=== PATIENT | female | born 1990 | race Caucasian/White ===

== ENCOUNTER 2019-09-01 08:05 | Inpatient (IN) | payer BC ==
[2019-09-01] MEDS ORDERED: ELECTROLYTE-148 SOLN 1,000 ML IV SCH ×2 (09:15→17:15)
[2019-09-01] MEDS ORDERED: PROMETHAZINE HCL 25 MG/1 ML VIAL ONE (09:31)
[2019-09-01] MEDS ORDERED: BUTORPHANOL TARTRATE 1 MG/ML VIAL ONE ×2 (09:31)
[2019-09-01] MEDS ORDERED: BUTORPHANOL TARTRATE 2 MG/ML VIAL IVPB ONE (10:00)
[2019-09-01] MEDS ORDERED: PROMETHAZINE HCL 25 MG/1 ML VIAL IVPB ONE (10:00)
[2019-09-01 10:02] VITALS: BMI 37.8
[2019-09-01 10:07] LABS: BASO % 0.8 % (0-2.0); EOS % 0.5 % (0-4.5); HEMATOCRIT 36.2 % (32.4-45.2); HEMOGLOBIN 12.5 GM/dL (10.7-15.3); LYMPH % 15.8 % (8-40); MCH 31.9 pg (25.7-33.7); MCHC 34.5 g/dl (32.0-36.0); MEAN CELL VOLUME 92.5 fl (80-96); MEAN PLT VOLUME 10.3 fl (7.5-11.1); NEUT % 76.9 % (42.8-82.8); PLATELET COUNT 167 K/MM3 (134-434); RBC 3.91 M/mm3 (3.60-5.2); RDW 16.1 % (11.6-15.6); WHITE BLOOD COUNT 11.4 K/mm3 (4.0-10.0)
[2019-09-01 10:24] LABS: INR 0.89 (0.83-1.09); PROTHROMBIN TIME (PATIENT) 10.5 SEC (9.7-13.0)
[2019-09-01 10:27] LABS: ACTIVATED PTT 27.3 SECONDS (25.2-36.5)
[2019-09-01 10:32] LABS: BLOOD UREA NITROGEN 9.6 mg/dL (7-18); CALCIUM 8.6 mg/dL (8.5-10.1); CREATININE 0.6 mg/dL (0.55-1.3); POTASSIUM 3.7 mmol/L (3.5-5.1)
[2019-09-01] MEDS ORDERED: OXYTOCIN 20 UNITS in 0.9% NS 20 UNIT/1,000 ML INFUS.BAG IV ONE ×3 (11:44→19:25)
[2019-09-01] MEDS ORDERED: LIDOCAINE HCL 1% PRESERVATIVE FREE - 30ML VIAL ONE (11:44)
[2019-09-01] MEDS ORDERED: FENTANYL/BUPIVACAINE/NS/PF - PCEA - 50 ML DISP.SYRIN EP ONE (13:45)
[2019-09-01] MEDS ORDERED: NALOXONE HCL 0.4 MG/ML VIAL IVPUSH PRN (13:52)
[2019-09-01] MEDS ORDERED: LIDO 2%/EPI 1:200000 PRESRVFRE (20 ML SDVIAL) ONE ×2 (13:53→17:08)
--- NOTE | 2019-09-01 14:05 | HP ---
Past Medical History - Admission Chief Complaint: labor pain History Source: Patient Limitations to Obtaining History: No Limitations - Past Medical History RESEARCH STATISTICIAN: No: Alzheimer's, CVA, Dementia, Migraine, Multiple Sclerosis, Peripheral Neuropathy, Parkinson's, Seizure, Syncope, TIA, Vertigo, Other Cardiovascular: No: AFIB, Aneurysm, Aortic Insufficiency, Aortic Stenosis, CAD, CHF, Deep Vein Thrombosis, HTN, Hyperlipdemia, SC, Mitral Insufficiency, Mitral Stenosis, Murmur, Pulmonary Hypertension, Other Pulmonary: No: Asthma, Bronchitis, Cancer, COPD, O2 Dependent, Pneumonia, Previously Intubated, Pulmonary Embolus, Pulmonary Fibrosis, Sleep Apnea, Other Gastrointestinal: No: Ascites, Cancer, Constipation, Crohn's Disease, Diverticulitis, Diverticulosis, Esophageal Varices, Gastritis, GERD, GI Bleed, Hemorrhoids, Hiatal Hernia, Inflamatory Bowel Disease, Irritable Bowel Disease, Pancreatitis, Peptic Ulcer Disease, Ulcerative Colitis, Other Hepatobiliary: No: Cirrhosis, Cholelithiasis, Cholecystitis, Choledocholithiasis , Hepatitis A, Hepatitis B, Hepatitis C, Other Renal/: No: Renal Failure, Renal Inusuff, BPH, Cancer, Hematuria, Hemodialysis , Neurogenic Bladder, Renal Calculi, UTI, Other ...: 1 ...Para: 0 ...Term: 0 ...: 0 ...Spon : 0 ...Induced : 0 ...Multiple Gestation: 0 ...EDC by Sono: 09/03/19 Heme/Onc: No: Anemia, B12 Deficiency, Bleeding Disorder, Cancer, Current Chemotherapy, Current Radiation Therapy, Hemochromatosis, Hypercoaguable State, Myeloproliferative Synd, Sickle Cell Disease, Sickle Cell Trait, Thrombocytopenia, Other Infectious Disease: No: AIDS, C-Diff, Herpes Zoster, HIV, MRSA, STD's, Tuberculosis, VREF, Other Psych: No: Addictions, Anxiety, Bipolar, Depression, Panic, Psychosis, Schizophrenia, Other Musculoskeletal: No: Bursitis, Chronic low back pain, Hemiparesis, Hemiplegia, Osteoarthritis, Paraplegia, Other Rheumatology: No: Fibromyalgia, Gout, Lupus, Rheumatoid Arthritis, Sarcoidosis, Vasculitis, Other ENT: No: Allergic Rhinitis, Sinusitis, Other Endocrine: No: [place]'s Disease, [place]'s Disease, Diabetes Insipidus, Diabetes Mellitus, Hyperparathyroidism, Hyperthyroidism, Hypothyroidism, Osteopenia, SIADH, Other Dermatology: No: Basal Cell, Cellulitis, Eczema, Melanoma, Psoriasis, Squamous Cell, Other - Past Surgical History Past Surgical History: No: None, AAA Repair, AICD, Amputation, Appendectomy, Arthrosocopy, AV Fistula/Graft, Bariatric Surgery, Breast Biopsy, Bypass, CABG, Carotid Endarterectomy, Cataract Removal, Cholecystectomy, Colectomy, Colonoscopy, Colostomy, Craniotomy, , Cystectomy, Hernia Repair, Hysterectomy, Ileal Conduit, Ileosotomy, Joint Replacement, Kidney Transplant, Laminectomy, Liver Transplant, Mastectomy, Nephrectomy, Oopherectomy, Orchiectomy, Permanent Pacemaker, Prostatectomy, Splenectomy, Stent, Thoracotomy , TURP, Tonsillectomy, Tubal Ligation, Upper Endoscopy, Valve Replacement, Vasectomy, Vein Stripping/Ligation Hx Myomectomy: No Hx Transabdominal Cerclage: No - Advance Directives Advance Directives: Yes: Living Will - Smoking History Smoking history: Never smoked Have you smoked in the past 12 months: No - Alcohol/Substance Use Hx Alcohol Use: No History of Substance Use: reports: None - Social History Usual Living Arrangement: Yes: With Spouse Do you think of yourself as: Straight/Heterosexual ADL: Independent History of Recent Travel: No Home Medications - Allergies Allergies/Adverse Reactions: Allergies Allergy/AdvReac Type Severity Reaction Status Date / Time No Known Allergies Allergy Verified 09/01/19 09:07 - Home Medications Home Medications: Ambulatory Orders Prenat 115/Iron Fum/Folic/Dss [ 19 Tablet] 1 each PO DAILY 09/01/19 Family Medical History Family History: Denies Review of Systems - Review of Systems Constitutional: reports: No Symptoms Eyes: reports: No Symptoms HENT: reports: No Symptoms Neck: reports: No Symptoms Cardiovascular: reports: No Symptoms Respiratory: reports: No Symptoms Gastrointestinal: reports: No Symptoms Genitourinary: reports: No Symptoms Breasts: reports: No Symptoms Reported Musculoskeletal: reports: No Symptoms Integumentary: reports: No Symptoms Neurological: reports: No Symptoms Endocrine: reports: No Symptoms Hematology/Lymphatic: reports: No Symptoms Psychiatric: reports: No Symptoms Pain Intensity: 6 Physical Exam - Maternity Vital Signs: Vital Signs Temperature 98.4 F 09/01/19 12:00 Pulse Rate 74 09/01/19 12:00 Respiratory Rate 18 09/01/19 12:00 Blood Pressure 140/82 09/01/19 12:00 O2 Sat by Pulse Oximetry (%) Constitutional: Yes: Well Nourished, No Distress, Calm Eyes: Yes: WNL, Conjunctiva Clear, EOM Intact HENT: Yes: WNL, Atraumatic, Normocephalic Neck: Yes: WNL, Supple, Trachea Midline Cardiovascular: Yes: WNL, Regular Rate and Rhythm Lungs: Clear to auscultation Breast(s): Yes: WNL - Abdominal Exam/OB Fundal Height: 38 Number of Fetuses: Single Presentation: Vertex Contractions: Yes Regularity: Regular Intensity: Moderate Monitor Mode: External Heart Rate Location: [facility] Category: I Accelerations: Uniform Decelerations: None - Vaginal Exam/OB Vaginal Bleediing: No Speculum Exam: No Dilatation (cm): 5 Effacement (%): 80 Amniotic Membrane Status: Bulging Presentation: Vertex/Position Station: -3 - Physical Exam Musculoskeletal: Yes: WNL Extremities: Yes: WNL Edema: Yes Edema: LUE: 1+, RUE: 1+, LLE: 1+, RLE: 1+ Integumentary: Yes: WNL Deep Tendon Reflex Grade: Normal +2 ...Motor Strength: WNL Psychiatric: Yes: WNL, Alert, Oriented - Labs Lab Results: CBC, BMP 09/01/19 09:55 09/01/19 09:55 Assessment/Plan continue laboring , anticipate
--- NOTE | 2019-09-01 14:07 | PN ---
Progress Note (short form) - Note Progress Note: 145 pm , 8 to 9 cm, same, for epidural
--- NOTE | 2019-09-01 14:07 | PN ---
Progress Note (short form) - Note Progress Note: 1110am , srom, 8 to 9 cm , -2. -3, 80%,continue laboring, stadol given
[2019-09-01] MEDS: FENTANYL/BUPIVACAINE/NS/PF - PCEA - 50 ML DISP.SYRIN EP SCH (14:10)
[2019-09-01] MEDS ORDERED: OXYTOCIN 30 UNITS in 0.9% NS 30 UNIT/500 ML INFUS.BAG IVPB ONE (14:31)
[2019-09-01] MEDS ORDERED: CITRIC ACID/SODIUM CITRATE 30 ML UNIT-DOSE CUP PO ONE (17:08)
[2019-09-01] MEDS ORDERED: ELECTROLYTE-148 SOLN 500 ML IV ONE (17:08)
--- NOTE | 2019-09-01 17:10 | PN ---
Progress Note (short form) - Note Progress Note: 420 pm 10 cm, feeling pain, pushing now
--- NOTE | 2019-09-01 17:11 | PN ---
Progress Note (short form) - Note Progress Note: 510 pm station is still -2, not deccending at all, asynclictic , pt requests and agree c sectiuon
[2019-09-01] MEDS ORDERED: ONDANSETRON 4 MG/2 ML VIAL IVPUSH PRN (17:19)
[2019-09-01] MEDS ORDERED: OXYTOCIN 30 UNITS in 0.9% NS 30 UNIT/500 ML INFUS.BAG IVPB SCH (17:45)
[2019-09-01] MEDS ORDERED: DEXAMETHASONE SOD PHOSPHATE 4 MG/1 ML VIAL ONE (17:45)
[2019-09-01] MEDS ORDERED: oxyCODONE HCL 5 MG TABLET PO PRN ×2 (18:51)
[2019-09-01] MEDS ORDERED: METHYLERGONOVINE MALEATE 0.2 MG/1 ML AMP IM PRN (18:51)
[2019-09-01] MEDS ORDERED: IBUPROFEN 800 MG/8 ML IJ IVPB PRN (18:51)
--- NOTE | 2019-09-01 18:58 | OP ---
Operative Note - Note: Operative Date: 09/01/19 Pre-Operative Diagnosis: f t deccend Operation: primary lt c s Findings: op, can x 1 Post-Operative Diagnosis: Same as Pre-op Surgeon: Marc Rice Groutman: Marek Barreto Anesthesiologist/MEDICAL HOUSEKEEPER: Miugelito Mckeon Anesthesia: Epidural Specimens Removed: placenta Estimated Blood Loss (mls): 500 Operative Report Dictated: Yes
[2019-09-01] MEDS ORDERED: OXYTOCIN 20 UNITS in 0.9% NS 20 UNIT/1,000 ML INFUS.BAG IV SCH (19:00)
[2019-09-02 07:41] LABS: BASO % 0.2 % (0-2.0); EOS % 0.1 % (0-4.5); HEMATOCRIT 28.4 % (32.4-45.2); HEMOGLOBIN 9.6 GM/dL (10.7-15.3); LYMPH % 11.2 % (8-40); MCH 31.1 pg (25.7-33.7); MCHC 33.8 g/dl (32.0-36.0); MEAN CELL VOLUME 91.9 fl (80-96); MEAN PLT VOLUME 9.9 fl (7.5-11.1); MONO % 7.4 % (3.8-10.2); NEUT % 81.1 % (42.8-82.8); PLATELET COUNT 133 K/MM3 (134-434); RBC 3.09 M/mm3 (3.60-5.2); RDW 16.2 % (11.6-15.6); WHITE BLOOD COUNT 13.1 K/mm3 (4.0-10.0)
[2019-09-02] MEDS: ENOXAPARIN NA (PORCINE) 40 MG/0.4 ML DISP.SYRIN SQ SCH (09:53)
[2019-09-02] MEDS ORDERED: FLU VACC QS2019-20(6MOS UP)/PF 60 MCG/0.5 ML SYRINGE IM ONE (10:00)
[2019-09-02] MEDS ORDERED: DIPHTH,PERTUSS(ACELL),TET 0.5 ML DISP.SYRIN IM ONE (10:00)
[2019-09-02] MEDS: ACETAMINOPHEN 325 MG TABLET (FP) PO PRN ×2 (12:59→18:31)
[2019-09-02] MEDS: IBUPROFEN 600 MG TABLET (FP) PO PRN ×2 (12:59→18:30)
--- NOTE | 2019-09-02 13:58 | OP ---
DATE OF OPERATION: 09/01/2019 PREOPERATIVE DIAGNOSIS: Failure to descend. POSTOPERATIVE DIAGNOSIS: Occiput posterior and cord around neck x1, failure to descend. PROCEDURE: Primary low-transverse section. SURGEON: Marc Luke MD COACH CLEANER: JUAN CARLOS Leonard ANESTHESIA: Miguelito Mckeon MD, epidural anesthesia. INDICATION: A 29-year-old female patient, 39 weeks 5 days , came in to the hospital in active labor. Patient was admitted, at 5 cm, about 8:00, and the patient progressed to be 8 cm about 11:00, with spontaneous rupture of membranes. At 1:30, the patient was still 8 to 9 cm, and we gave her epidural, and about 4:15, patient fully dilated and patient started pushing, and the head was still very high, about -2 to -3 station and appeared to be OP presentation. The patient was pushing hard and patient was in pain, could not tolerate pain and epidural was not working at this point, so patient requested section, and also the head was a little high, and will explain to the patient about condition and situation, and patient agreed, and patient was taken to the OR for primary low-transverse section for failure to descending. DESCRIPTION: Patient already had an epidural and patient was taken to the OR and placed on the operating table in supine position. Epidural was already topped off. The patient's abdomen and pelvis were prepped and draped in the usual sterile manner. A Pfannenstiel incision was made. Incision was made through skin and subcutaneous tissue until the fascia was nicked in the midline. The fascia was extended bilaterally. Intraperitoneal cavity was entered. Bladder flap was created. Low-transverse segment was entered. Baby delivered from OP presentation, cord around the neck x1, and baby was handed over to correctional officer lieutenant after umbilical cord doubly clamped and cut. Cord blood gas was obtained. Placenta was removed. Uterus was closed in a single layer, 1st layer with interlocking Vicryl sutures. Good hemostasis. Both gutters cleaned. Both ovaries and fallopian tubes and uterus were within normal limits. Polycystic ovarian syndrome was seen from both ovaries. No complication. Peritoneum was closed, fascia was closed, skin was closed. Transferred to recovery room in stable condition, draining clear urine. Blood loss about 500 mL. No complications. MARC LUKE MD /[id number]
[2019-09-02] MEDS: SIMETHICONE 80 MG TAB.CHEW (FP) PO PRN (18:29)
[2019-09-02] MEDS ORDERED: BISACODYL 10 MG SUPP.RECT RC PRN (18:51)
--- NOTE | 2019-09-02 21:38 | PN ---
Progress Note, Physician Chief Complaint: s/p c section under epidural anesthesia History of Present Illness: post op day one with duramorph for post op pain control - Current Medication List Current Medications: Active Medications Acetaminophen (Tylenol -) 650 mg PO Q4H PRN PRN Reason: FEVER Last Admin: 09/02/19 18:31 Dose: 650 mg Bisacodyl (Dulcolax Suppository -) 10 mg RC PRN PRN PRN Reason: CONSTIPATION Diphenhydramine HCl (Benadryl Injection -) 25 mg IVPUSH Q4H PRN PRN Reason: Pruritis Enoxaparin Sodium (Lovenox -) 40 mg SQ DAILY EAMON Last Admin: 09/02/19 09:53 Dose: 40 mg Fentanyl/Bupivacaine/Sodium Chlor (Bupivicaine 0.125%/Fentanyl 2mcg/Ml Pcea) 50 ml EP ASDIR [facility]; Protocol Last Admin: 09/01/19 14:10 Dose: 50 ml Parenteral Electrolytes (Plasma-Lyte 148 -) 1,000 mls @ 125 mls/hr IV ASDIR EAMON Last Admin: 09/01/19 09:00 Dose: 125 mls/hr Parenteral Electrolytes (Plasma-Lyte 148 -) 1,000 mls @ 125 mls/hr IV ASDIR EAMON Oxytocin/Sodium Chloride (Normal Saline+30 Units Oxytocin) 30 unit in 500 mls @ 1 mls/hr IVPB TITR [facility]; Protocol Last Titration: 09/01/19 16:20 Dose: 0.3 unit/hr, 5 mls/hr Oxytocin/Sodium Chloride (Normal Saline+20 Units Oxytocin -) 20 unit in 1,000 mls @ 125 mls/hr IV ASDIR EAMON Last Admin: 09/01/19 20:45 Dose: 125 mls/hr Ibuprofen (Motrin -) 600 mg PO Q4H PRN PRN Reason: PAIN LEVEL 1 - 3 Last Admin: 09/02/19 18:30 Dose: 600 mg Ibuprofen (Caldolor Injection -) 800 mg IVPB Q8H PRN PRN Reason: PAIN LEVEL 7-10 Last Admin: 09/02/19 07:51 Dose: 800 mg Influenza Virus Vaccine Quadrival (Flulaval Quad ) 60 mcg IM .ONCE ONE Stop: 09/03/19 10:01 Methylergonovine Maleate (Methergine Injection -) 0.2 mg IM Q4H PRN PRN Reason: Excessive Bleeding (L&D) Naloxone HCl (Narcan -) 0.4 mg IVPUSH PRN PRN PRN Reason: Sedation Ondansetron HCl (Zofran Injection) 4 mg IVPUSH Q4H PRN PRN Reason: NAUSEA Oxycodone HCl (Roxicodone -) 5 mg PO Q4H PRN PRN Reason: PAIN LEVEL 4 - 6 Oxycodone HCl (Roxicodone -) 10 mg PO Q4H PRN PRN Reason: PAIN 7 - 10; IF CALDOR NT WORK Simethicone (Mylicon -) 80 mg PO Q4H PRN PRN Reason: GAS Last Admin: 09/02/19 18:29 Dose: 80 mg - Objective Vital Signs: Vital Signs Temperature 98.6 F 09/02/19 16:00 Pulse Rate 100 H 09/02/19 16:00 Respiratory Rate 18 09/02/19 16:00 Blood Pressure 124/63 09/02/19 16:00 O2 Sat by Pulse Oximetry (%) 100 09/01/19 19:35 Constitutional: Yes: Well Nourished Cardiovascular: Yes: WNL Respiratory: Yes: WNL Gastrointestinal: Yes: WNL Labs: CBC, BMP 09/02/19 07:16 09/01/19 09:55 INR, PTT INR 0.89 (0.83-1.09) 09/01/19 09:55 Assessment/Plan no adverse anesthetic complications, pain controlled, no nausea or vomiting, no headache. Dept of anesthesia will sign off case at this time
[2019-09-03] MEDS: IBUPROFEN 600 MG TABLET (FP) PO PRN ×4 (01:47→21:58)
[2019-09-03] MEDS: SIMETHICONE 80 MG TAB.CHEW (FP) PO PRN ×4 (01:47→21:57)
[2019-09-03] MEDS: ACETAMINOPHEN 325 MG TABLET (FP) PO PRN ×4 (01:47→21:58)
[2019-09-03] MEDS: ENOXAPARIN NA (PORCINE) 40 MG/0.4 ML DISP.SYRIN SQ SCH (09:04)
[2019-09-03] MEDS ORDERED: FLU VACC QS2019-20(6MOS UP)/PF 60 MCG/0.5 ML SYRINGE IM ONE (09:15)
[2019-09-03] MEDS ORDERED: FLU VACCINE QUAD 60 MCG/0.5 ML (MDV 19-20) IM ONE ×2 (10:00)
[2019-09-03] MEDS: FENTANYL/BUPIVACAINE/NS/PF - PCEA - 50 ML DISP.SYRIN EP SCH ×2 (20:54→20:55)
[2019-09-04 08:03] LABS: BASO % 0.2 % (0-2.0); EOS % 1.1 % (0-4.5); HEMATOCRIT 28.7 % (32.4-45.2); HEMOGLOBIN 9.7 GM/dL (10.7-15.3); LYMPH % 16.1 % (8-40); MCH 31.3 pg (25.7-33.7); MCHC 33.7 g/dl (32.0-36.0); MEAN CELL VOLUME 92.7 fl (80-96); MEAN PLT VOLUME 9.2 fl (7.5-11.1); MONO % 6.5 % (3.8-10.2); NEUT % 76.1 % (42.8-82.8); PLATELET COUNT 161 K/MM3 (134-434); RBC 3.09 M/mm3 (3.60-5.2); RDW 16.7 % (11.6-15.6); WHITE BLOOD COUNT 7.4 K/mm3 (4.0-10.0)
[2019-09-04] MEDS: ACETAMINOPHEN 325 MG TABLET (FP) PO PRN (09:23)
[2019-09-04] MEDS: IBUPROFEN 600 MG TABLET (FP) PO PRN (09:24)
[2019-09-04] MEDS: ENOXAPARIN NA (PORCINE) 40 MG/0.4 ML DISP.SYRIN SQ SCH (10:35)
--- NOTE | 2019-09-04 15:01 | PN ---
Post Progress Note Post Day: 3 Type of Delivery: Primary C/S Vital Signs: Vital Signs Temperature 98.1 F 09/04/19 09:20 Pulse Rate 91 H 09/04/19 09:20 Respiratory Rate 18 09/04/19 09:20 Blood Pressure 126/81 09/04/19 09:20 O2 Sat by Pulse Oximetry (%) 100 09/01/19 19:35 Breast Exam: Yes: Soft (nursing) Uterus: Yes: Fundus Firm Incision: Yes: Dressing dry and intact Abdomen/GI: Yes: Abdomen soft, Passing flatus, Tolerating PO Lochia: Yes: Rubra Lochia, amount: Small Extremities: Yes: Calves non-tender Activity: Ambulating - Labs Labs: CBC WBC 7.4 K/mm3 (4.0-10.0) 09/04/19 06:50 RBC 3.09 M/mm3 (3.60-5.2) L 09/04/19 06:50 Hgb 9.7 GM/dL (10.7-15.3) L 09/04/19 06:50 Hct 28.7 % (32.4-45.2) L 09/04/19 06:50 MCV 92.7 fl (80-96) 09/04/19 06:50 MCH 31.3 pg (25.7-33.7) 09/04/19 06:50 MCHC 33.7 g/dl (32.0-36.0) 09/04/19 06:50 RDW 16.7 % (11.6-15.6) H 09/04/19 06:50 Plt Count 161 K/MM3 (134-434) D 09/04/19 06:50 MPV 9.2 fl (7.5-11.1) 09/04/19 06:50 Absolute Neuts (auto) 5.7 K/mm3 (1.5-8.0) 09/04/19 06:50 Neutrophils % 76.1 % (42.8-82.8) 09/04/19 06:50 Lymphocytes % 16.1 % (8-40) D 09/04/19 06:50 Monocytes % 6.5 % (3.8-10.2) 09/04/19 06:50 Eosinophils % 1.1 % (0-4.5) D 09/04/19 06:50 Basophils % 0.2 % (0-2.0) 09/04/19 06:50 Nucleated RBC % 0 % (0-0) 09/04/19 06:50 Problem List - Problems (1) care following delivery Code(s): Z39.2 - ENCOUNTER FOR ROUTINE FOLLOW-UP Assessment/Plan Patient is doing very well. Happy. Incision clan and dry. Uters contracted, firm. Good pain control. Instructions given Discharge.
[2019-09-04 15:51] VITALS: BP 130/87; PULSE 101; TEMP 98.4
--- NOTE | 2019-09-05 16:28 | PATH ---
Surgical Pathology Report Patient Name: SHIRA LAND [facility]. Rec. #: [id number] /Age/Gender: 1990 (Age: 29) / F Account: [id number] Location: [address] [place] [address] OBG/BRANCH SALES AND SERVICE REPRESENTATIVE Taken: 09/01/2019 Received: 09/03/2019 Reported: 09/05/2019 Physicians: Marc Rice MD Specimen(s) Received PLACENTA Clinical History at 39 weeks 5 days for primary for failure to descend Final Diagnosis PLACENTA: THIRD TRIMESTER PLACENTA. TRIVASCULAR CORD. MEMBRANES WITH NO DIAGNOSTIC ABNORMALITIES. Electronically Signed Lalit Tan M.D. Gross Description The specimen is received fresh labeled placenta and is a 412 gram, 17.0 x 15.0 x 2.3 cm. placenta with attached membranes and umbilical cord. The attached membranes are armenta, translucent with focal opacities and insert marginally. The umbilical cord measures 34 cm. in length and averages 1.5 cm. in diameter. The cord inserts eccentrically, 4.5 cm. to the nearest margin. No true knots or strictures are identified. Cut surface of the umbilical cord reveals 3 vessels. The surface is martin-blue with minimal fibrin deposition and appropriate caliber vessels. The maternal surface is red-brown with focal defects. Sectioning reveals red-brown, spongy parenchyma. No lesions are identified. It Support Specialist sections are submitted in three cassettes as follows: 1- membrane rolls and umbilical cord; 2-3- full thickness sections of placenta. /09/04/2019 saudi09/04/2019
== END 2019-09-04 16:15 | disposition home or self-care (01) | DRG 788 ==
LOC: JLDR 08:05 → J3W 20:30
PROVIDERS: ADMIT Obstetrics & Gynecology; ATTEND Obstetrics & Gynecology
PROC: 10D00Z1 Extraction of Products of Conception, Low, Open Approach (ICD-10-PCS; principal; 2019-09-01)
DX: O32.4XX0 Maternal care for high head at term, not applicable or unspecified (principal); O69.81X0 Labor and delivery complicated by cord around neck, without compression, not applicable or unspecified; Z3A.39 39 weeks gestation of pregnancy; Z37.0 Single live birth
CPT/HCPCS: 36415; 80048; 85025; 85610; 85730; 86593; 86850; 86900; 86901; 87389; 88307-TC; 90686; 90715

== ENCOUNTER 2021-12-09 21:05 | Inpatient (IN) | payer BC, OTHER ==
[2021-12-09 22:20] LABS: BASO % 0.2 % (0-2.0); EOS % 0.6 % (0-4.5); HEMATOCRIT 36.1 % (32.4-45.2); HEMOGLOBIN 12.1 GM/dL (10.7-15.3); LYMPH % 20.5 % (8-40); MCH 29.8 pg (25.7-33.7); MCHC 33.6 g/dl (32.0-36.0); MEAN CELL VOLUME 88.6 fl (80-96); MEAN PLT VOLUME 9.4 fl (7.5-11.1); MONO % 6.9 % (3.8-10.2); NEUT % 71.8 % (42.8-82.8); PLATELET COUNT 193 10^3/uL (134-434); RBC 4.07 M/mm3 (3.60-5.2); RDW 18.2 % (11.6-15.6); WHITE BLOOD COUNT 7.9 K/mm3 (4.0-10.0)
[2021-12-09 22:41] LABS: CREATININE 0.6 mg/dL (0.55-1.3)
[2021-12-09 22:50] LABS: INR 0.95 (0.83-1.09); PROTHROMBIN TIME (PATIENT) 10.9 SEC (9.7-13.0)
[2021-12-09 22:53] LABS: ACTIVATED PTT 25.5 SECONDS (25.2-36.5)
[2021-12-09] MEDS ORDERED: CITRIC ACID/SODIUM CITRATE 30 ML UNIT-DOSE CUP PO ONE (23:45)
[2021-12-09] MEDS ORDERED: ELECTROLYTE-148 SOLN 1,000 ML IV SCH (23:45)
[2021-12-09] MEDS ORDERED: ELECTROLYTE-148 SOLN 500 ML IV ONE (23:45)
[2021-12-10] MEDS ORDERED: morphine SULFATE/PF 1 MG/2 ML (2cc Syringe - QUVA) ONE (00:44)
[2021-12-10] MEDS ORDERED: ACETAMINOPHEN 325 MG TABLET (FP) PO PRN ×2 (01:55→02:15)
[2021-12-10] MEDS ORDERED: ONDANSETRON 4 MG/2 ML VIAL IVPUSH PRN (01:55)
[2021-12-10] MEDS ORDERED: IBUPROFEN 800 MG/8 ML IJ IVPB PRN (02:15)
[2021-12-10] MEDS ORDERED: SENNOSIDES/DOCUSATE COMBO (SENNA PLUS) TABLET (UD) PO PRN (02:15)
[2021-12-10] MEDS ORDERED: OXYTOCIN 20 UNITS in 0.9% NS 20 UNIT/1,000 ML INFUS.BAG IV SCH (02:15)
[2021-12-10] MEDS ORDERED: METHYLERGONOVINE MALEATE 0.2 MG/1 ML AMP IM PRN (02:15)
[2021-12-10 03:15] VITALS: BMI 38.6
[2021-12-10] MEDS ORDERED: OXYTOCIN 20 UNITS in 0.9% NS 20 UNIT/1,000 ML INFUS.BAG IV ONE (03:33)
[2021-12-10] MEDS: PRENATAL VITAMINS W/ FOLIC ACID TABLET (FP) PO SCH (10:56)
[2021-12-10] MEDS: IBUPROFEN 600 MG TABLET (FP) PO PRN ×2 (13:29→19:52)
[2021-12-10] MEDS ORDERED: oxyCODONE HCL 5 MG TABLET PO PRN ×2 (14:15)
[2021-12-10] MEDS: SIMETHICONE 80 MG TAB.CHEW (FP) PO PRN (19:53)
[2021-12-11] MEDS ORDERED: BISACODYL 10 MG SUPP.RECT RC PRN (02:15)
[2021-12-11] MEDS: IBUPROFEN 600 MG TABLET (FP) PO PRN ×3 (03:37→20:21)
[2021-12-11] MEDS: SIMETHICONE 80 MG TAB.CHEW (FP) PO PRN ×2 (03:37→20:21)
[2021-12-11 08:41] LABS: BASO % 0.3 % (0-2.0); EOS % 1.1 % (0-4.5); HEMATOCRIT 29.8 % (32.4-45.2); HEMOGLOBIN 9.9 GM/dL (10.7-15.3); LYMPH % 19.3 % (8-40); MCH 29.9 pg (25.7-33.7); MCHC 33.3 g/dl (32.0-36.0); MEAN CELL VOLUME 89.9 fl (80-96); MONO % 8.2 % (3.8-10.2); NEUT % 71.1 % (42.8-82.8); PLATELET COUNT 160 10^3/uL (134-434); RBC 3.31 M/mm3 (3.60-5.2); RDW 18.3 % (11.6-15.6); WHITE BLOOD COUNT 8.6 K/mm3 (4.0-10.0)
[2021-12-11] MEDS: PRENATAL VITAMINS W/ FOLIC ACID TABLET (FP) PO SCH (09:56)
[2021-12-12] MEDS: PRENATAL VITAMINS W/ FOLIC ACID TABLET (FP) PO SCH (09:58)
[2021-12-12] MEDS: IBUPROFEN 600 MG TABLET (FP) PO PRN ×2 (09:58→22:26)
[2021-12-12] MEDS: SIMETHICONE 80 MG TAB.CHEW (FP) PO PRN ×2 (09:58→22:26)
[2021-12-13] MEDS: SIMETHICONE 80 MG TAB.CHEW (FP) PO PRN (08:29)
[2021-12-13] MEDS: IBUPROFEN 600 MG TABLET (FP) PO PRN (08:29)
[2021-12-13] MEDS: PRENATAL VITAMINS W/ FOLIC ACID TABLET (FP) PO SCH (09:05)
[2021-12-13 10:03] VITALS: BP 115/72; PULSE 94; TEMP 98
== END 2021-12-13 13:45 | disposition home or self-care (01) | DRG 785 ==
LOC: JDEL 21:05 → JLDR 21:30 → J3W 12-10 04:57
PROVIDERS: ADMIT Obstetrics & Gynecology; ATTEND Obstetrics & Gynecology
PROC: 10D00Z1 Extraction of Products of Conception, Low, Open Approach (ICD-10-PCS; principal; 2021-12-10)
PROC: 0UL70ZZ Occlusion of Bilateral Fallopian Tubes, Open Approach (ICD-10-PCS; 2021-12-10)
DX: O34.211 Maternal care for low transverse scar from previous cesarean delivery (principal); O69.1XX0 Labor and delivery complicated by cord around neck, with compression, not applicable or unspecified; Z30.2 Encounter for sterilization; Z3A.38 38 weeks gestation of pregnancy; Z37.0 Single live birth
CPT/HCPCS: 36415; 80048; 85025; 85610; 85730; 86780; 86850; 86900; 86901; 88302-TC; 88307-TC; C9803; U0003; U0005